=== PATIENT | male | born 1970 | race American Indian/Alaskan Native ===

== ENCOUNTER 2020-12-24 09:49 | Emergency (ER) | payer OTHER ==
[2020-12-24] MEDS ORDERED: ACETAMINOPHEN 500 MG TAB PO ONE (10:13)
[2020-12-24 10:29] VITALS: BP 127/90
--- NOTE | 2020-12-24 10:30 | Emergency Department Report ---
ED Fever HPI - General Chief Complaint: Fever Stated Complaint: COUGH Time Seen by Provider: 12/24/20 10:11 - History of Present Illness Initial Comments: 50-year-old male, no past medical history is, presents to ED with Covid-like symptoms x2 weeks. Patient reports fever, body aches, loss of smell and taste, diarrhea, cough, dyspnea on exertion. Patient is unvaccinated. Patient here requesting a Covid test. Patient has not been tested yet. Timing/Duration: other (2 weeks) Fever Severity/Quality: greater than 100.5 F Fever Therapy [employer]: cold remedies Associated Symptoms: cough, muscle aches, shortness of breath ED Review of Systems ROS: Stated complaint: COUGH Other details as noted in HPI Comment: All other systems reviewed and negative Constitutional: fever Respiratory: cough, SOB with exertion Gastrointestinal: diarrhea. denies: nausea, vomiting Musculoskeletal: myalgia ED Past Medical Hx - Past Medical History Previous Medical History?: No - Surgical History Past Surgical History?: No - Medications Home Medications: Home Medications Medication Instructions Recorded Confirmed Last Taken Type No Known Home Medications [No 12/24/20 12/24/20 Unknown History Reported Home Medications] ED Physical Exam - General Limitations: No Limitations General appearance: alert, in no apparent distress - Head Head exam: Present: atraumatic, normocephalic - Eye Eye exam: Present: normal appearance, EOMI - ENT ENT exam: Present: mucous membranes moist - Neck Neck exam: Present: normal inspection - Respiratory Respiratory exam: Present: normal lung sounds bilaterally. Absent: respiratory distress - Cardiovascular Cardiovascular Exam: Present: normal rhythm, tachycardia - GI/Abdominal GI/Abdominal exam: Present: soft. Absent: distended, tenderness - Extremities Exam Extremities exam: Present: normal inspection - Neurological Exam Neurological exam: Present: alert, oriented X3 - Psychiatric Psychiatric exam: Present: normal affect, normal mood - Skin Skin exam: Present: warm, dry, intact, normal color ED Course Vital Signs 12/24/20 12/24/20 12/24/20 10:04 10:26 10:28 Temperature 100.5 F H 101.7 F H Pulse Rate 117 H 115 H Respiratory 22 20 Rate Blood Pressure 139/98 Blood Pressure 127/90 [Right] O2 Sat by Pulse 96 94 94 Oximetry 12/24/20 10:29 Temperature 101.7 F H Pulse Rate 120 H Respiratory 20 Rate Blood Pressure 127/90 Blood Pressure [Right] O2 Sat by Pulse 94 Oximetry - Reevaluation(s) Reevaluation #1: 12/24/20 10:30 With ambulation O2 sats remained at 94% on room air. Reevaluation #2: 12/24/20 10:52 Patient refusing any blood work. I spoke with patient and explained that we would be checking a D-dimer, as COVID-19 can predispose to blood clots, including a PE. I explained to patient that a blood clot in the lungs can be deadly. Patient refuses labs, CT, states that he would rather leave AMA. Patient states he only came for Covid test. Despite our efforts, Mr. Campos has decided to leave AGAINST MEDICAL ADVICE. He has a normal mental status and full decisional capacity. Patient understands his condition and the risks of leaving AMA, including but not limited to permanent disability and , and has had opportunity to ask questions about his medical condition. The patient has been informed that he may return for care at any time and has been referred to his local medical physician for follow-up of ALLY. ED Medical Decision Making - Radiology Data Radiology results: report reviewed, image reviewed - Medical Decision Making 50-year-old male with Covid-like symptoms presents to ED for Covid test. Patient refused any blood work. Chest x-ray shows nonspecific minimal patchy opacities in the periphery of both lungs. Likely secondary to Covid infection, antibiotics likely not indicated. Patient not hypoxic. AMA paperwork signed. Outpatient follow-up advised. - Differential Diagnosis COVID-19, pneumonia, PE Critical care attestation.: If time is entered above; I have spent that time in minutes in the direct care of this critically ill patient, excluding procedure time. ED Disposition Clinical Impression: Suspected 2019 novel coronavirus infection Disposition: 07 LEFT AGAINST MEDICAL ADVICE Is pt being admited?: No Condition: Stable Instructions: COVID-19 Additional Instructions: Your oxygen level is normal today. Please obtain outpatient COVID-19 testing. [id number] vitamin C, vitamin D, and zinc can help your body to fight infection. Take as directed. Please purchase a pulse oximeter, so that you can monitor your oxygen level. If your oxygen drops below 92%, return to the emergency room. Referrals: PRIMARY CAREMD [Primary Care Provider] - 3-5 Days Forms: AMA Form Time of Disposition: 10:58
--- NOTE | 2020-12-24 10:50 | XRay Report ---
CHEST 2 VIEWS INDICATION / CLINICAL INFORMATION: Cough and fever for 2 days.. COMPARISON: None available. FINDINGS: SUPPORT DEVICES: None. HEART / MEDIASTINUM: The heart size and pulmonary vasculature are normal. LUNGS / PLEURA: There is minimal patchy parenchymal disease in the periphery of the right mid-upper l ivis. There also may be minimal disease in the periphery of the left lower lung. No pleural effusion o r adenopathy. No pneumothorax. ADDITIONAL FINDINGS: Degenerative changes involving the left glenohumeral joint with one or 2 large i ntra-articular loose bodies. IMPRESSION: Minimal patchy parenchymal opacities in the periphery of both lungs are nonspecific. Atyp ical causes of infection, including viral pneumonia, should be considered. Signer Name: Monty Mullins MD Signed: 12/24/2020 10:45 AM Workstation Name: [id number]
== END 2020-12-24 11:14 | disposition left against medical advice (07) ==
LOC: ED 09:49
DX: R50.9 Fever, unspecified (principal); R05.9 Cough, unspecified; Z20.822 Contact with and (suspected) exposure to COVID-19; R43.9 Unspecified disturbances of smell and taste; R19.7 Diarrhea, unspecified; M79.18 Myalgia, other site
CPT/HCPCS: 71046; 99283